=== PATIENT | female | born 1965 | race Caucasian/White ===

== ENCOUNTER 2017-01-16 14:41 | Emergency (ER) | payer SELFPAY ==
[~2017-01-16] VITALS: Ht 167.6 cm; Wt 61.7 kg
[2017-01-16] MEDS ORDERED: NYST1000 PO (15:38)
--- NOTE | 2017-01-16 15:43 | PHYS DOC ---
General Chief Complaint: DENTAL PROBLEM Stated Complaint: MOUTH PAIN Time Seen by MD: 15:36 Source: patient Exam Limitations: no limitations Problems: History of Present Illness Initial Comments Pt is 51/F to ED c/o mouth pain. Pt states she's had severe mouth pain for over a month. No trauma, no dental pain, pt states the inside of her mouth feels swollen. Eating and drinking are painful, pt has been using OTC canker sore preps which sting badly initially but do provide relief. Pt was seen at [facility] yesterday diagnosed salivary gland infection. Pt has grown weary of the discomfort, expresses frustration and despair here for analgesia. I note whitish exudate at tongue, thru questioning she says every now and then she has to scrape off the white covering in her mouth. No blood visualized but she has tasted it after scraping. Further questioning reveals pt took prednisone 6 weeks ago for chest congestion. Denies immunosuppression or recent antibiotics, and when asked states she does think she has vaginal yeast infection. Timing/Duration: gradual, other Severity: severe Location: mouth Prearrival Treatment: over the counter meds Modifying Factors: improves with other Associated Symptoms: poor solids intake, other Allergies: Coded Allergies: morphine (Verified Allergy, Severe, Nausea and Vomiting, 01/16/17) Past Medical History Medical History: no pertinent history Surgical History: noncontributory (cervical fracture) Social History Smoker: quit less than 1 year Alcohol: none Drugs: none Constitutional: denies chills, denies diaphoresis, denies fever, denies malaise Nose: denies clots, denies congestion, denies epistaxis Mouth: see HPI Throat: denies pain, denies swelling, denies neck stiffness Respiratory: denies cough, denies shortness of breath, denies wheezing Cardiovascular: denies chest pain, denies palpitations, denies syncope Gastrointestinal: denies abdominal pain, denies nausea, denies vomiting Musculoskeletal: denies back pain, denies joint swelling, denies neck pain Neurological: denies headache, denies numbness, denies paresthesia Physical Exam General Appearance: WD/WN, no apparent distress Nose: normal inspection Mouth/Throat: other (whitish exudate over erythematous base c/w thrush, airway patent) Neck: supple, trachea midline Cardiovascular/Respiratory: normal peripheral pulses, normal breath sounds, no respiratory distress Neurologic/Psychiatric: 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 OTC analgesic throat sprays, tylenol/ibuprofen as needed. Rx: nystatin Follow up with your doctor in 10-14 days. Return to ED with new or changing symptoms. ANISHA DAN DO Jan 16, 2017 15:43
[2017-01-16] MEDS ORDERED: FLUCONAZOLE 100 MG TABLET. PO ONE (16:00)
[2017-01-16 16:08] VITALS: BP 101/80
== END 2017-01-16 15:45 | disposition home or self-care (01) ==
LOC: ER 14:41
DX: B37.9 Candidiasis, unspecified (principal); Z87.891 Personal history of nicotine dependence; Z88.5 Allergy status to narcotic agent
CPT/HCPCS: 99283

== ENCOUNTER 2017-05-17 19:55 | Emergency (ER) | payer SELFPAY ==
[~2017-05-17] VITALS: Ht 167.6 cm; Wt 58.1 kg
[~2017-05-17 19:55] MED LIST: NYST1000 PO
[2017-05-17 20:07] VITALS: BP 139/98
[2017-05-17] MEDS ORDERED: NEOMYCIN/BACITRAC/POLY TOPICAL OINTMENT 28GM TUBE. TP STA (20:17)
[2017-05-17] MEDS ORDERED: DIPHTH,PERTUSS(ACELL),TET TOX 0.5 ML DISP.SYRIN. VAX IM ONE (20:30)
[2017-05-17] MEDS ORDERED: CEPHALEXIN 250 MG CAPSULE PO ONE (20:30)
[2017-05-17] MEDS ORDERED: IBUPROFEN 600 MG TABLET. PO ONE (20:30)
[2017-05-17] MEDS ORDERED: traMADol 50 MG TABLET PO ONE (20:30)
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
[2017-05-17] MEDS ORDERED: HYDR-971 PO (21:44)
[2017-05-17] MEDS ORDERED: CEPH-264 PO (21:44)
[2017-05-17] MEDS ORDERED: FLUC150T PO (21:44)
[2017-05-17] MEDS ORDERED: NAPR500T3 PO (21:44)
== END 2017-05-17 22:02 | disposition home or self-care (01) ==
LOC: ER 19:55
DX: S50.811A Abrasion of right forearm, initial encounter (principal); S20.311A Abrasion of right front wall of thorax, initial encounter; Z88.1 Allergy status to other antibiotic agents; Z88.5 Allergy status to narcotic agent; W19.XXXA Unspecified fall, initial encounter; Y93.89 Activity, other specified; Y99.8 Other external cause status; Y92.89 Other specified places as the place of occurrence of the external cause
CPT/HCPCS: 90471; 90715; 99284-25

== ENCOUNTER → 2018-02-15 | Outpatient (CLI) | payer OTHER ==
[~2018-02-15] MED LIST changes: +CEPH-264 PO; +FLUC150T PO; +HYDR-971 PO; +NAPR-514 PO
--- NOTE | 2018-02-15 16:32 | RAD ---
EXAM: Chest, single view; bilateral ribs, 4 views. HISTORY: Pain. COMPARISON: None. FINDINGS: A frontal view of the chest and 4 views of the ribs are obtained. There is no infiltrate, effusion or pneumothorax. The heart is normal in size. There is cervical spinal fusion instrumentation at the superior margin of the [id number]. There is deformity of the right ninth and tenth ribs due to healed fractures. There may also be healed fractures of the seventh and eighth ribs. IMPRESSION: 1. No acute pulmonary finding. 2. Suspected healed anterior right rib fractures. No acute displaced rib fracture is seen. Electronically signed by: Vero Lopez MD (02/15/2018 4:28 PM) [facility] [place]
--- NOTE | 2018-02-15 16:32 | RAD ---
EXAM: Chest, single view; bilateral ribs, 4 views. HISTORY: Pain. COMPARISON: None. FINDINGS: A frontal view of the chest and 4 views of the ribs are obtained. There is no infiltrate, effusion or pneumothorax. The heart is normal in size. There is cervical spinal fusion instrumentation at the superior margin of the [id number]. There is deformity of the right ninth and tenth ribs due to healed fractures. There may also be healed fractures of the seventh and eighth ribs. IMPRESSION: 1. No acute pulmonary finding. 2. Suspected healed anterior right rib fractures. No acute displaced rib fracture is seen. Electronically signed by: Vero Lopez MD (02/15/2018 4:28 PM) [facility] [place]
== END | disposition home or self-care (01) ==
LOC: DXRAD 15:26
PROVIDERS: ATTEND Nurse Practitioner Family
DX: R07.9 Chest pain, unspecified (principal)
CPT/HCPCS: 71046; 71110

== ENCOUNTER → 2018-08-25 | Outpatient (CLI) | payer OTHER ==
[~2018-08-25] MED LIST changes: +HYDR-3165 PO; -HYDR-971 PO
--- NOTE | 2018-08-25 15:26 | RAD ---
DATE: 08/25/2018 EXAM: DIGITAL SCREEN BILAT W/CAD HISTORY: Routine screening COMPARISON: 08/13/2016 This study was interpreted with the benefit of Computerized Aided Detection (CAD). Breast Density: HETERO The breast parenchyma is heterogenously dense, which could reduce sensitivity of mammography. Breast parenchyma level C. FINDINGS: No new or enlarging breast densities are seen. Minimal benign type calcification is present. No suspicious microcalcifications have developed. IMPRESSION: Stable mammograms without evidence of malignancy. BI-RADS CATEGORY: 2 BENIGN FINDING(S) RECOMMENDED FOLLOW-UP: 12M 12 MONTH FOLLOW-UP PQRS compliance statement: Patient information was entered into a reminder system with a target due date for the next mammogram. Mammography is a sensitive method for finding small breast cancers, but it does not detect them all and is not a substitute for careful clinical examination. A negative mammogram does not negate a clinically suspicious finding and should not result in delay in biopsying a clinically suspicious abnormality. "Our facility is accredited by the [employer] Mammography Program."
== END | disposition home or self-care (01) ==
LOC: MAMMO 11:08
PROVIDERS: ATTEND Family Medicine
DX: Z12.31 Encounter for screening mammogram for malignant neoplasm of breast (principal)
CPT/HCPCS: 77067

== ENCOUNTER 2018-11-28 10:57 | Emergency (ER) | payer SELFPAY ==
[~2018-11-28] VITALS: Ht 167.6 cm; Wt 61.2 kg
--- NOTE | 2018-11-28 12:10 | RAD ---
Examination: 2 views of the lumbar spine HISTORY: History of fall, back pain COMPARISON: None available FINDINGS: The lumbar vertebral body heights are maintained. No evidence of listhesis is identified. Mild intervertebral disc height loss identified in the lumbar spine likely degeneration. The facets appear to align. Straightening of lumbar lordosis. IMPRESSION: 1. No acute osseous findings. 2. There is straightening of normal lordosis likely secondary to muscle spasm or pain. 3. Mild degenerative changes lumbar spine. Electronically signed by: Dean Nettles MD (11/28/2018 12:07 PM) [facility]
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
[2018-11-28] MEDS ORDERED: CYCLOBENZAPRINE 10 MG TABLET. PO ONE (12:30)
[2018-11-28 12:48] VITALS: BP 136/65
[2018-11-28] MEDS ORDERED: CYCL-331 PO (12:51)
== END 2018-11-28 13:04 | disposition home or self-care (01) ==
LOC: ER 10:57
DX: S39.012A Strain of muscle, fascia and tendon of lower back, initial encounter (principal); R55 Syncope and collapse; Z88.1 Allergy status to other antibiotic agents; Z88.5 Allergy status to narcotic agent; W18.39XA Other fall on same level, initial encounter; Y93.89 Activity, other specified; Y92.89 Other specified places as the place of occurrence of the external cause; Y99.8 Other external cause status
CPT/HCPCS: 72100; 99283

== ENCOUNTER 2018-12-31 17:07 | Emergency (ER) | payer SELFPAY ==
[~2018-12-31] VITALS: Ht 167.6 cm; Wt 63.5 kg
[~2018-12-31 17:07] MED LIST changes: +CYCL-331 PO
[2018-12-31 17:15] VITALS: BP 115/82
[2018-12-31] MEDS ORDERED: IV NORMAL SALINE 1,000ML 1,000 ML IV ONE (17:30)
--- NOTE | 2018-12-31 17:35 | RAD ---
PQRS Compliance statement: One or more of the following individualized dose reduction techniques were utilized for this examination: 1. Automated exposure control. 2. Adjustment of the mA and/or kV according to patient size. 3. Use of iterative reconstruction technique. Indication:HEAD INJURY TODAY, LACERATION TO POSTERIOR SKULL. HEAD AND NECK PAIN TECHNIQUE: CT head without IV contrast COMPARISON:None FINDINGS: No pathologic extra-axial or intra-axial fluid collection. The ventricles and basal cisterns are within normal limits. No acute intracranial bleed. No large scalp hematoma. Orbits within normal limits. No acute calvarial fracture. Visualized paranasal sinuses and mastoid air cells are clear. IMPRESSION: No acute intracranial process or calvarial fracture. Indication:HEAD INJURY TODAY, LACERATION TO POSTERIOR SKULL. HEAD AND NECK PAIN TECHNIQUE: CT of the cervical spine without IV contrast with multiplanar reformats. COMPARISON:None FINDINGS: Cervical spine demonstrates straightening. This could be due to muscle spasm or positioning. Atlantoaxial joint interval is preserved. Status post anterior fusion at C6-C7. Break in the screws seen in C6 vertebral body. Discectomy changes at C5-C6. No compression deformity. Facet joints are in normal anatomic alignment with multilevel facet arthropathy. No acute fractures. Noncontrast appearance of the neck soft tissue is within normal limits. Clear lung apices. IMPRESSION: 1. No acute fractures. Electronically signed by: Jae Silver DO (12/31/2018 5:32 PM) [facility]
[2018-12-31 17:41] LABS: BASO # 0.1 x10^3/uL (0.0-0.2); BASO % 1 % (0-3); EOS # 0.1 x10^3/uL (0.0-0.7); EOS % 3 % (0-3); HEMATOCRIT 42.2 % (36.0-47.0); HEMOGLOBIN 14.3 g/dL (12.0-15.5); LYMPH # 2.2 x10^3/uL (1.0-4.8); LYMPH % 43 % (24-48); MEAN CORPUSCULAR HEMOGLOBIN 33 pg (25-35); MEAN CORPUSCULAR HGB CONC 34 g/dL (31-37); MEAN CORPUSCULAR VOLUME 96 fL (79-100); MONO # 0.4 x10^3/uL (0.0-1.1); MONO % 8 % (0-9); NEUT # 2.4 x10^3uL (1.8-7.7); NEUT % 46 % (31-73); PLATELET COUNT 226 x10^3/uL (140-400); RED BLOOD COUNT 4.39 x10^6/uL (3.50-5.40); RED CELL DISTRIBUTION WIDTH 14.7 % (11.5-14.5); WHITE BLOOD COUNT 5.2 x10^3/uL (4.0-11.0)
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
[2018-12-31 17:52] LABS: ALBUMIN/GLOBULIN RATIO 1.1 (1.0-1.7); CALCIUM 9.1 mg/dL (8.5-10.1); CREATININE 0.7 mg/dL (0.6-1.0); GFR 87.2; POTASSIUM 3.8 mmol/L (3.5-5.1); TOTAL BILIRUBIN 0.2 mg/dL (0.2-1.0); TOTAL PROTEIN 7.8 g/dL (6.4-8.2)
[2018-12-31] MEDS ORDERED: KETOROLAC 30 MG/ML VIAL. IV ONE (18:30)
[2018-12-31] MEDS ORDERED: DIPHTH,PERTUSS(ACELL),TET TOX 0.5 ML DISP.SYRIN. VAX IM ONE (18:45)
[2018-12-31 23:32] LABS: % SEGS 42 % (35-66)
[2018-12-31 23:33] LABS: % BANDS 2 % (0-9); % EOS 4 % (0-5); % MONOS 5 % (0-10)
[2018-12-31 23:34] LABS: % BASOS 2 % (0-3); % LYMPHS 44 % (24-48)
[2018-12-31 23:35] LABS: % ATYL 1 % (0-0)
[2018-12-31 23:37] LABS: PLT ESTIMATE ADEQUATE (ADEQUATE); POLYCHROMASIA SLIGHT; SCHISTOCYTES OCC
== END 2018-12-31 18:54 | disposition home or self-care (01) ==
LOC: ER 17:07
DX: T74.11XA Adult physical abuse, confirmed, initial encounter (principal); S01.01XA Laceration without foreign body of scalp, initial encounter; G44.319 Acute post-traumatic headache, not intractable; R55 Syncope and collapse; Z88.1 Allergy status to other antibiotic agents; Y04.0XXA Assault by unarmed brawl or fight, initial encounter; Y93.89 Activity, other specified; Y92.098 Other place in other non-institutional residence as the place of occurrence of the external cause; Y99.8 Other external cause status
CPT/HCPCS: 12002; 36415; 70450; 72125; 80053; 85007; 85025; 90471; 90715; 96361; 96374; 99284; J1885; J7030

== ENCOUNTER 2019-03-31 08:56 | Emergency (ER) | payer SELFPAY ==
[~2019-03-31] VITALS: Ht 167.6 cm; Wt 63.5 kg
[2019-03-31] MEDS ORDERED: IV NORMAL SALINE 1,000ML 1,000 ML IV ONE (09:15)
[2019-03-31] MEDS ORDERED: IPRATRPIUM/ALBUTEROL 0.5/2.5MG 3 ML NEBU. NEB ONE (09:15)
[2019-03-31] MEDS ORDERED: methylPREDNISolone SOD SUCC PF 125 MG/2 ML VIAL. IV ONE (09:15)
--- NOTE | 2019-03-31 09:22 | PHYS DOC ---
Past History Past Medical History: Other Past Surgical History: Appendectomy, Hysterectomy, Tonsillectomy, Other Alcohol Use: Occasionally Drug Use: None Adult General Chief Complaint Chief Complaint: MULTIPLE COMPLAINTS [facility] HPI 53-year-old female presents with mild shortness of breath. The patient has asthma. She has been using her albuterol 4 times a day. She continues to feel short of breath for the last 2 days. After she got ready this morning, she was felt like she could not catch her breath and said come the hospital. She has had cough and congestion. She denies fever or chills. She had recent contact to a child with viral URI. She is still able to do daily activities. Review of Systems Review of Systems Constitutional: Denies fever or chills [] Eyes: Denies change in visual acuity, redness, or eye pain [] HENT: nasal congestion [] Respiratory: Cough with shortness of breath [] Cardiovascular: No additional information not addressed in HPI [] GI: Denies abdominal pain, nausea, vomiting, bloody stools or diarrhea [] : Denies dysuria or hematuria [] Musculoskeletal: Denies back pain or joint pain [] Integument: Denies rash or skin lesions [] Neurologic: Denies headache, focal weakness or sensory changes [] Endocrine: Denies polyuria or polydipsia [] All other systems were reviewed and found to be within normal limits, except as documented in this note. Allergies Allergies Allergies Coded Allergies Type Severity Reaction Last Updated Verified Tetracyclines Allergy Intermediate 05/17/17 Yes morphine Adverse Reaction Severe Nausea and Vomiting 05/17/17 Yes Physical Exam Physical Exam Constitutional: Well developed, well nourished, no acute distress, non-toxic appearance. [] HENT: Normocephalic, atraumatic, bilateral external ears normal, oropharynx moist, no oral exudates, nose normal. [] Eyes: PERRLA, EOMI, conjunctiva normal, no discharge. [] Neck: Normal range of motion, no tenderness, supple, no stridor. [] Cardiovascular:Heart rate regular rhythm, no murmur [] Lungs & Thorax: Bilateral breath sounds with mild, bilateral end expiratory wheezing[] Abdomen: Bowel sounds normal, soft, no tenderness, no masses, no pulsatile masses. [] Skin: Warm, dry, no erythema, no rash. [] Back: No tenderness, no CVA tenderness. [] Extremities: No tenderness, no cyanosis, no clubbing, ROM intact, no edema. [] Neurologic: Alert and oriented X 3, normal motor function, normal sensory function, no focal deficits noted. [] Psychologic: Affect normal, judgement normal, mood normal. [] EKG EKG [] Radiology/Procedures Radiology/Procedures [] Impressions: Exam performed: 2 views of the chest. Indication: SOB Date of Service: 03/31/2019 9:26 AM . Comparison : 02/15/18 Findings: PA and lateral radiographs of the chest reveal a normal cardiomediastinal contour. The lungs are clear. No pleural fluid is seen. The visualized osseous structures are unremarkable. Impression: No acute cardiopulmonary process seen. Electronically signed by: Maria Elena Del Cid MD (03/31/2019 9:36 AM) [facility] DICTATED AND SIGNED BY: MARIA ELENA DEL CID MD DATE: 03/31/19 0936 CC: YOUNG OROPEZA DO; PCP,UNKNOWN ~ Course & Med Decision Making Course & Med Decision Making Pertinent Labs and Imaging studies reviewed. (See chart for details) The patient was given a DuoNeb treatment in the ED followed by 125 of Solu- Medrol IV. Her chest x-ray is negative for acute findings. I believe this is a COPD exacerbation. I will discharge her with a prescription for an additional 50 mg of prednisone for 3 days. She is stable for discharge at this time. [] Dragon Disclaimer Dragon Disclaimer This electronic medical record was generated, in whole or in part, using a voice recognition dictation system. Departure Departure: Impression: Primary Impression: COPD exacerbation Disposition: 01 HOME, SELF-CARE Condition: STABLE Referrals: PCP,UNKNOWN (PCP) Patient Instructions: Chronic Obstructive Pulmonary Disease Exacerbation, [id number] Scripts Prednisone (PREDNISONE) 10 Mg Tablet 50 MG PO DAILY for COPD exacerbation for 3 Days, #15 TAB Prov: YOUNG OROPEZA DO 03/31/19 YOUNG OROPEZA DO Mar 31, 2019 09:22
--- NOTE | 2019-03-31 09:39 | RAD ---
Exam performed: 2 views of the chest. Indication: SOB Date of Service: 03/31/2019 9:26 AM . Comparison : 02/15/18 Findings: PA and lateral radiographs of the chest reveal a normal cardiomediastinal contour. The lungs are clear. No pleural fluid is seen. The visualized osseous structures are unremarkable. Impression: No acute cardiopulmonary process seen. Electronically signed by: Maria Elena Del Cid MD (03/31/2019 9:36 AM) [facility]
[2019-03-31] MEDS ORDERED: PRED-220 PO (09:59)
[2019-03-31] MEDS ORDERED: NAPROXEN 500 MG TABLET PO ONE (10:00)
[2019-03-31 10:09] LABS: BASO # 0.1 x10^3/uL (0.0-0.2); BASO % 1 % (0-3); EOS # 0.1 x10^3/uL (0.0-0.7); EOS % 1 % (0-3); HEMATOCRIT 42.5 % (36.0-47.0); HEMOGLOBIN 13.8 g/dL (12.0-15.5); LYMPH # 2.3 x10^3/uL (1.0-4.8); LYMPH % 25 % (24-48); MEAN CORPUSCULAR HEMOGLOBIN 32 pg (25-35); MEAN CORPUSCULAR HGB CONC 33 g/dL (31-37); MEAN CORPUSCULAR VOLUME 98 fL (79-100); MONO # 0.7 x10^3/uL (0.0-1.1); MONO % 8 % (0-9); NEUT # 6.2 x10^3uL (1.8-7.7); NEUT % 66 % (31-73); PLATELET COUNT 195 x10^3/uL (140-400); RED BLOOD COUNT 4.35 x10^6/uL (3.50-5.40); RED CELL DISTRIBUTION WIDTH 14.3 % (11.5-14.5); WHITE BLOOD COUNT 9.5 x10^3/uL (4.0-11.0)
[2019-03-31 10:15] VITALS: BP 115/71
== END 2019-03-31 10:47 | disposition home or self-care (01) ==
LOC: ER 08:56
DX: J44.1 Chronic obstructive pulmonary disease with (acute) exacerbation (principal); Z88.1 Allergy status to other antibiotic agents; Z88.5 Allergy status to narcotic agent
CPT/HCPCS: 36415; 71046; 85025; 94640; 96374; 99285; J2930; J7620; J7030

== ENCOUNTER 2019-08-17 04:00 | Emergency (ER) | payer SELFPAY ==
[~2019-08-17] VITALS: Ht 167.6 cm; Wt 63.5 kg
[~2019-08-17 04:00] MED LIST changes: +PRED-220 PO
[2019-08-17 04:11] VITALS: BP 152/96
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
== END 2019-08-17 04:45 | disposition home or self-care (01) ==
LOC: ER 04:00
DX: G89.29 Other chronic pain (principal); M54.2 Cervicalgia; Z88.1 Allergy status to other antibiotic agents; Z88.5 Allergy status to narcotic agent
CPT/HCPCS: 99281

== ENCOUNTER 2020-10-17 04:20 | Emergency (ER) | payer SELFPAY ==
[~2020-10-17] VITALS: Ht 167.6 cm; Wt 5.5 kg
[2020-10-17 04:20] VITALS: BP 135/78
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
[2020-10-17] MEDS ORDERED: ACETAMINOPHEN 500 MG TABLET PO ONE (05:00)
--- NOTE | 2020-10-17 06:26 | RAD ---
EXAM: XR FOOT_RIGHT 3 VIEWS, XR HIP_RT 2-3VIEWS, XR EXAM OF ANKLE_RIGHT 3VIEWS 10/17/2020 4:28 AM CLINICAL INDICATION: Fall, right hip ankle and foot pain. COMPARISON: None FINDINGS: Right ankle: No fracture or malalignment. Ankle mortise is symmetric and talar dome is intact. No deg enerative changes. No soft tissue abnormality. Right foot: No fracture or malalignment. No degenerative changes. Soft tissues normal. Right hip: No acute fracture. Alignment is normal. Hip joint space is maintained. The right sacroilia c joint and pubic symphysis are normal. IMPRESSION: No acute osseous abnormality of the right foot, ankle, or hip. Electronically signed by: Nelida Rodriguez MD (10/17/2020 6:23 AM) [id number]
== END 2020-10-17 05:00 | disposition home or self-care (01) ==
LOC: ER 04:20
DX: S93.401A Sprain of unspecified ligament of right ankle, initial encounter (principal); J45.909 Unspecified asthma, uncomplicated; Z88.1 Allergy status to other antibiotic agents; Z88.5 Allergy status to narcotic agent; X50.9XXA Other and unspecified overexertion or strenuous movements or postures, initial encounter; Y93.01 Activity, walking, marching and hiking; Y92.89 Other specified places as the place of occurrence of the external cause; Y99.8 Other external cause status
CPT/HCPCS: 73502; 73610; 73630; 99284

== ENCOUNTER 2021-06-30 15:18 | Emergency (ER) | payer SELFPAY ==
[~2021-06-30] VITALS: Ht 167.6 cm; Wt 51.9 kg
[2021-06-30] MEDS ORDERED: IBUPROFEN 600 MG TABLET. PO ONE (15:30)
[2021-06-30] MEDS ORDERED: IV NORMAL SALINE 1,000ML 1,000 ML IV ONE (15:30)
[2021-06-30] MEDS ORDERED: ONDANSETRON PF 4 MG/2 ML VIAL. IVP ONE (15:30)
--- NOTE | 2021-06-30 15:33 | PHYS DOC ---
Past History Past Medical History: Asthma (MIESHA BURNETTE APRN) Past Surgical History: Tonsillectomy, Other Additional Past Surgical Histo: NECK X3, TUMOR REMOVAL FROM ABDOMEN (MIESHA BURNETTE APRN) Alcohol Use: Occasionally Drug Use: None (MIESHA BURNETTE APRN) General Adult EDM: Chief Complaint: ALTERED MENTAL STATUS HPI: HPI: Patient is a 56-year-old female who presents to the ER today for headache and nausea. Patient states that she believes that she was exposed to natural gas. Patient states that she was sitting in her home when she thought she had smelled gas and so she went out to her car which was not running and she started having a headache. Mild nausea. EMS states that she was unsteady on her feet and fell over. Patient states that she did hit her head but did not lose consciousness. Patient is reporting of frontal headache and nausea. She denies any vomiting, alcohol use, drug use. EMS states no other people in her home have the symptoms and the fire department did not find any readings on their monitors. (MIESHA BURNETTE APRN) Review of Systems: Review of Systems: Constitutional: Denies fever or chills GI: Denies abdominal pain, vomiting, bloody stools or diarrhea, SEE HPI Neurologic: Denies focal weakness or sensory changes, see HPI Psychiatric: Denies depression or anxiety (MIESHA BURNETTE APRN) Allergies: Allergies: Allergies Coded Allergies Type Severity Reaction Last Updated Verified Tetracyclines Allergy Intermediate 05/17/17 Yes morphine Adverse Reaction Severe Nausea and Vomiting 05/17/17 Yes (MIESHA BURNETTE APRN) Physical Exam: PE: Constitutional: Well developed, well nourished, no acute distress, non-toxic appearance. [] HENT: Normocephalic, atraumatic, bilateral external ears normal, oropharynx moist, no oral exudates, nose normal, no lacerations noted. [] Eyes: PERRL, EOMI, conjunctiva normal, no discharge. [] Neck: Normal range of motion, no stridor Cardiovascular:Heart rate regular rhythm, no murmur [] Lungs & Thorax: Bilateral breath sounds clear to auscultation [] Abdomen: Bowel sounds normal, soft, no tenderness, no masses, no pulsatile masses. [] Skin: Warm, dry, no erythema, no rash. [] Back: Normal range of motion Extremities: No tenderness, no cyanosis, no clubbing, ROM intact, no edema. [] Neurologic: Alert and oriented X 3, normal motor function, normal sensory function, no focal deficits noted. [] Psychologic: Affect normal, judgement normal, mood normal, rambling speech. [] (MIESHA BURNETTE APRN) Current Patient Data: Labs: Laboratory Tests Test 06/30/21 15:40 06/30/21 16:17 White Blood Count 8.1 x10^3/uL Red Blood Count 3.92 x10^6/uL Hemoglobin 12.5 g/dL Hematocrit 38.0 % Mean Corpuscular Volume 97 fL Mean Corpuscular Hemoglobin 32 pg Mean Corpuscular Hemoglobin Concent 33 g/dL Red Cell Distribution Width 14.6 % Platelet Count 235 x10^3/uL Neutrophils (%) (Auto) 57 % Lymphocytes (%) (Auto) 31 % Monocytes (%) (Auto) 9 % Eosinophils (%) (Auto) 4 % Basophils (%) (Auto) 0 % Neutrophils # (Auto) 4.6 x10^3uL Lymphocytes # (Auto) 2.5 x10^3/uL Monocytes # (Auto) 0.7 x10^3/uL Eosinophils # (Auto) 0.3 x10^3/uL Basophils # (Auto) 0.0 x10^3/uL Sodium Level 139 mmol/L Potassium Level 4.6 mmol/L Chloride Level 104 mmol/L Carbon Dioxide Level 25 mmol/L Anion Gap 10 Blood Urea Nitrogen 13 mg/dL Creatinine 0.4 mg/dL Estimated GFR (Cockcroft-Gault) 164.5 BUN/Creatinine Ratio 33 Glucose Level 115 mg/dL Calcium Level 9.0 mg/dL Total Bilirubin 0.3 mg/dL Aspartate Amino Transf (AST/SGOT) 28 U/L Alanine Aminotransferase (ALT/SGPT) 22 U/L Alkaline Phosphatase 79 U/L Troponin I Quantitative < 0.017 ng/mL Total Protein 6.9 g/dL Albumin 3.6 g/dL Albumin/Globulin Ratio 1.1 Urine Collection Type Unknown Urine Color Yellow Urine Clarity Hazy Urine pH 7.0 Urine Specific [place] 1.015 Urine Protein Neg Urine Glucose (UA) Neg mg/dL Urine Ketones (Stick) Neg mg/dL Urine Blood Trace Urine Nitrite Neg Urine Bilirubin Neg Urine Urobilinogen Dipstick 0.2 mg/dL Urine Leukocyte Esterase Large Urine RBC Occ /HPF Urine WBC >40 /HPF Urine Squamous Epithelial Cells Mod /LPF Urine Bacteria Few /HPF Urine Opiates Screen Neg Urine Methadone Screen Neg Urine Barbiturates Neg Urine Phencyclidine Screen Neg Urine Amphetamine/Methamphetamine Pos Urine Benzodiazepines Screen Neg Urine Cocaine Screen Pos Urine Cannabinoids Screen Neg Urine Ethyl Alcohol Neg Current Medications Medications (Trade) Dose Ordered Sig/Merari Route PRN Reason Start Time Stop Time Status Last Admin Dose Admin Sodium Chloride 1,000 ml @ 1,000 mls/hr 1X ONCE IV 06/30/21 15:30 06/30/21 16:29 DC 06/30/21 15:30 Ondansetron HCl (Zofran) 4 mg 1X ONCE IVP 06/30/21 15:30 06/30/21 16:10 DC 06/30/21 15:30 Ibuprofen (Motrin) 600 mg 1X ONCE PO 06/30/21 15:30 06/30/21 16:10 DC 06/30/21 15:30 (MIESHA BURNETTE APRN) EKG: EKG: EKG performed by ER staff at 1539 shows sinus rhythm, no STEMI read by Dr. Oropeza at 1546. [] (MIESHA BURNETTE APRN) Radiology/Procedures: Radiology/Procedures: []PROCEDURE: CT HEAD WO CONTRAST INDICATION: Reason: head injury / Spl. Instructions: / History: COMPARISON: December 2018 TECHNIQUE: Axial CT images obtained through the head without intravenous contrast. One or more of the following individualized dose reduction techniques were utilized for this examination: 1. Automated exposure control; 2. Adjustment of the mA and/or kV according to patient size; 3. Use of iterative reconstruction technique. FINDINGS: No intracranial hemorrhage. No significant midline shift. Ventricles and sulci are unremarkable. No acute osseous abnormality. Mucosal thickening bilateral maxillary sinuses partially seen. IMPRESSION: * No acute intracranial hemorrhage. Electronically signed by: Yong Stock MD (06/30/2021 4:07 PM) [id number] DICTATED AND SIGNED BY: YONG STOCK MD DATE: 06/30/21 1559 CC: BRENT RASHEED; YOUNG OROPEZA DO; MIESHA BURNETTE APRN ~MTH0 0 PROCEDURE: CHEST AP ONLY Study: XR CHEST 1V Indication: Altered mental status. Comparison: 03/31/2019 Findings: Unchanged cardiomediastinal silhouette and piero. No focal airspace infiltrate, pleural effusion or pneumothorax. Increased lung volumes unchanged from the prior. Partially imaged ACDF construct. Impression: No acute radiographic abnormality of the chest. No relevant change from the 03/31/2019 comparison. Electronically signed by: ESTEBAN OSORIO MD (06/30/2021 4:02 PM) [id number] DICTATED AND SIGNED BY: ESTEBAN OSORIO MD DATE: 06/30/21 160 CC: BRENT RASHEED; YOUNG OROPEZA DO ~MTH0 0 (MIESHA BURNETTE APRN) Heart Score: C/O Chest Pain: N/A Risk Factors: Risk Factors: DM, Current or recent (<one month) smoker, HTN, HLP, family history of CAD, obesity. Risk Scores: Score 0 - 3: 2.5% MACE over next 6 weeks - Discharge Home Score 4 - 6: 20.3% MACE over next 6 weeks - Admit for Clinical Observation Score 7 - 10: 72.7% MACE over next 6 weeks - Early Invasive Strategies (MIESHA BURNETTE APRN) Course & Med Decision Making: Course & Med Decision Making Pertinent Labs and Imaging studies reviewed. (See chart for details) [] Patient is a 56-year-old female who presents to the ER with headache and nausea after believing she was exposed to carbon monoxide. No other members of the household have the symptoms and the fire department did not find any carbon monoxide readings in the home. Work-up in the ER consisted of blood work, urinalysis, drug screen, CT scan of head this patient stated that she did fall and hit her head. Patient treated with IV fluids, pain medication and nausea medication. CBC unremarkable. Negative troponin. Head CT negative and chest x-ray negative. CMP unremarkable. UA shows urinary tract infection and this will be treated with an antibiotic. Given first dose in ER. Patient also advis ed to increase fluids and avoid bladder irritants. Urine drug screen was positive for cocaine and methamphetamines. Patient states that the cocaine was submitted in some food at a libertarian that she attended yesterday and the amphetamines are prescribed to her. I discussed with patient all findings and diagnostic testing as well as the need to follow-up with PCP for further evaluation and treatment or return to the ER if any new or worsening symptoms. Strict return precautions were also discussed at length. Patient voiced understanding and agreement with the plan. Patient is hemodynamically stable at the time of disposition. (MIESHA BURNETTE APRN) Dillon Disclaimer: Dillon Disclaimer: This electronic medical record was generated, in whole or in part, using a voice recognition dictation system. (MIESHA BURNETTE APRN) Attending Co-Sign The patient was seen and interviewed as well as examined at the bedside. The chart was reviewed. The case was discussed. Agree with the plan of care. (YOUNG OROPEZA DO) Departure Departure: Impression: Primary Impression: Urinary tract infection Qualified Codes: N30.01 - Acute cystitis with hematuria Disposition: HOME / SELF CARE / HOMELESS Condition: GOOD Referrals: BRENT RASHEED (PCP) Patient Instructions: Urinary Tract Infection Additional Instructions: You were seen in the ER today for suspicion for carbon oxide poisoning. As we discussed, the fire department did not find any carbon monoxide in your home. Your blood work was reassuring however you were noted to have a urinary tract infection which will be treated with an antibiotic. Please start and finish this completely. Please increase your fluids and avoid bladder irritants such as sugary beverages, alcohol and caffeine. If you develop any headaches you can take Tylenol or ibuprofen at home. Please follow-up with your primary care provider tomorrow regarding your ER visit. If you develop any new or worsening concerns please return to the ER. EMERGENCY DEPARTMENT GENERAL DISCHARGE INSTRUCTIONS Thank you for coming to [facility] (ED) today and trusting us with you care. We trust that you had a positivie experience in our Emergency Department. If you wish to speak to the department management, you may call the director at [phone]. YOUR FOLLOW UP INSTRUCTIONS ARE FOLLOWS: 1. Do you have a private Doctor? If you do not have a private doctor, please ask for a resource list of physicians or clinics that may be able to assist you with follo w up care. 2. The Emergency Physician has interpreted your x-rays. The X-Ray specialist will also review them. If there is a change in the findings, you will be notified in 48 hours when at all possible. 3. A lab test or culture has been done, your results will be reviewed and you will be notified if you need a change in treatment. ADDITIONAL INSTRUCTIONS AND INFORMATION: 1. Your care today has been supervised by a physician who is specially trained in emergency care. Many problems require more than one evaluation for a complete diagnosis and treatment. We recommend that you schedule your follow up appointment as rec ommended to ensure complete treatment of you illness or injury. If you are unable to obtain follow up care and continue to have a problem, or if your condition worsens, we recommend that you return to the ED. 2. We are not able to safely determine your condition over the phone nor are we able to give sound medical advice over the phone. For these safety reasons, if you call for medical advice we will ask you to come to the ED for further evaluation. 3. If you have any questions regarding these discharge instructions please call the ED at [phone]. SAFETY INFORMATION: In the interest of safety, wellness, and injury prevention; we encourage you to wear your sealbelt, if you smoke; quite smoking, and we encourage family to use a protective helmet for bicycling and other sporting events that present an increased risk for head injury. IF YOUR SYMPTOMS WORSEN OR NEW SYMPTOMS DEVELOP, OR YOU HAVE CONCERNS ABOUT YOUR CONDITION; OR IF YOUR CONDITION WORSENS WHILE YOU ARE WAITING FOR YOUR FOLLOW UP APPOINTMENT; EITHER CONTACT YOUR PRIMARY CARE DOCTOR, THE PHYSICIAN WHOSE NAME AND NUMBER YOU WERE GIVEN, OR RETURN TO THE ED IMMEDIATELY. Scripts Cephalexin (CEPHALEXIN) 500 Mg Tablet 1 TAB PO BID for UTI for 7 Days, #14 TAB 0 Refills Prov: MIESHA BURNETTE APRN 06/30/21 MIESHA BURNETTE APRN Jun 30, 2021 15:33 YOUNG OROPEZA DO Jul 01, 2021 09:22
--- NOTE | 2021-06-30 16:04 | RAD ---
Study: XR CHEST 1V Indication: Altered mental status. Comparison: 03/31/2019 Findings: Unchanged cardiomediastinal silhouette and piero. No focal airspace infiltrate, pleural effusion or pneumothorax. Increased lung volumes unchanged from the prior. Partially imaged ACDF construct. Impression: No acute radiographic abnormality of the chest. No relevant change from the 03/31/2019 comparison. Electronically signed by: ESTEBAN OSORIO MD (06/30/2021 4:02 PM) [id number]
[2021-06-30 16:05] LABS: BASO % 0 % (0-3); EOS # 0.3 x10^3/uL (0.0-0.7); EOS % 4 % (0-3); HEMOGLOBIN 12.5 g/dL (12.0-15.5); LYMPH # 2.5 x10^3/uL (1.0-4.8); LYMPH % 31 % (24-48); MEAN CORPUSCULAR HEMOGLOBIN 32 pg (25-35); MEAN CORPUSCULAR HGB CONC 33 g/dL (31-37); MEAN CORPUSCULAR VOLUME 97 fL (79-100); MONO # 0.7 x10^3/uL (0.0-1.1); MONO % 9 % (0-9); NEUT # 4.6 x10^3uL (1.8-7.7); NEUT % 57 % (31-73); PLATELET COUNT 235 x10^3/uL (140-400); RED BLOOD COUNT 3.92 x10^6/uL (3.50-5.40); RED CELL DISTRIBUTION WIDTH 14.6 % (11.5-14.5); WHITE BLOOD COUNT 8.1 x10^3/uL (4.0-11.0)
--- NOTE | 2021-06-30 16:09 | RAD ---
INDICATION: Reason: head injury / Spl. Instructions: / History: COMPARISON: December 2018 TECHNIQUE: Axial CT images obtained through the head without intravenous contrast. One or more of the following individualized dose reduction techniques were utilized for this examinat ion: 1. Automated exposure control; 2. Adjustment of the mA and/or kV according to patient size; 3 . Use of iterative reconstruction technique. FINDINGS: No intracranial hemorrhage. No significant midline shift. Ventricles and sulci are unremarkable. No acute osseous abnormality. Mucosal thickening bilateral maxillary sinuses partially seen. IMPRESSION: * No acute intracranial hemorrhage. Electronically signed by: He Willett MD (06/30/2021 4:07 PM) [id number]
[2021-06-30 16:14] LABS: CREATININE 0.4 mg/dL (0.6-1.0); GFR 164.5; POTASSIUM 4.6 mmol/L (3.5-5.1)
[2021-06-30 16:20] LABS: ALBUMIN 3.6 g/dL (3.4-5.0); ALBUMIN/GLOBULIN RATIO 1.1 (1.0-1.7); TOTAL BILIRUBIN 0.3 mg/dL (0.2-1.0); TOTAL PROTEIN 6.9 g/dL (6.4-8.2)
[2021-06-30 17:07] LABS: BARBITURATES NEG (NEG); BENZODIAZEPINES NEG (NEG); CANNABINOIDS NEG (NEG); COCAINE POS (NEG); METHADONE NEG (NEG); OPIATES NEG (NEG); PHENCYCLIDINE NEG (NEG)
[2021-06-30 17:08] LABS: AMPHETAMINE/METHAMPHETAMINE POS (NEG)
[2021-06-30 17:17] LABS: BILIRUBIN,URINE NEG (NEG); CLARITY,URINE HAZY; COLOR,URINE YELLOW; GLUCOSE,URINE NEG (NEG)
[2021-06-30 17:18] LABS: BACTERIA,URINE FEW /HPF (0-FEW); NITRITE,URINE NEG (NEG); RBC,URINE OCC /HPF (0-2); SQUAMOUS EPITHELIAL CELL,UR MOD /LPF; UROBILINOGEN,URINE 0.2 mg/dL (0.2 mg/dL); WBC,URINE >40 /HPF (0-4)
[2021-06-30 17:24] VITALS: BP 136/80
[2021-06-30] MEDS ORDERED: CEPH500T PO (17:35)
[2021-06-30] MEDS ORDERED: CEPHALEXIN 250 MG CAPSULE PO ONE (17:45)
--- NOTE | 2021-06-30 20:32 | EKG ---
[address] [address] Test Date: 2021-06-30 Test Time: 15:39:59 Pat Name: JOHANA ZPEEDA Department: Room: Gender: F Waste Handling Technician: DESTINY : 1965 Requested By: YOUNG OROPEZA Order Number: [id number] Reading MD: Arya Gastelum Measurements Intervals [place] Rate: 85 P: 77 FL: 164 QRS: 42 QRSD: 70 T: 71 QT: 368 QTc: 438 Interpretive Statements SINUS RHYTHM LEFT ATRIAL ABNORMALITY LOW LIMB LEAD VOLTAGE T ABNORMALITY IN HIGH LATERAL LEADS ABNORMAL ECG RI6.02 No previous ECG available for comparison Electronically Signed On 07-02-2021 13:44:25 CDT by Arya Gastelum
== END 2021-06-30 17:44 | disposition home or self-care (01) ==
LOC: ER 15:18
DX: N30.01 Acute cystitis with hematuria (principal); J45.909 Unspecified asthma, uncomplicated; Z88.1 Allergy status to other antibiotic agents; Z88.5 Allergy status to narcotic agent
CPT/HCPCS: 36415; 70450; 71045; 80053; 80307; 81001; 84484; 85025; 87086; 93005; 96361; 96374; 99285; J2405; J7030

== ENCOUNTER 2021-08-10 00:10 | Emergency (ER) | payer SELFPAY ==
[~2021-08-10] VITALS: Ht 165.1 cm; Wt 51.9 kg
[~2021-08-10 00:10] MED LIST changes: +CEPH500T PO; -CYCL-331 PO; +CYCL10TA19 PO
--- NOTE | 2021-08-10 00:22 | PHYS DOC ---
Past History Past Medical History: Asthma Past Surgical History: Tonsillectomy, Other Additional Past Surgical Histo: NECK X3, TUMOR REMOVAL FROM ABDOMEN Alcohol Use: Occasionally Drug Use: None Adult General HPI HPI Patient is a 56-year-old female with a past medical history significant for crack cocaine use who smoke some crack just before coming into the emergency department and tripped and fell outside. Denies loss of consciousness, changes in vision, chest pain, shortness of breath, abdominal pain, nausea, vomiting. Denies any numbness/weakness/tingling, trouble sitting, standing or walking. States she is having some pain around her right shoulder which radiates up to the right side of her neck, 6 out of 10, dull and achy in nature. Denies any other injuries. Denies use of anticoagulation. Review of Systems Review of Systems Review of systems otherwise unremarkable except noted in HPI Allergies Allergies Allergies Coded Allergies Type Severity Reaction Last Updated Verified Tetracyclines Allergy Intermediate 05/17/17 Yes morphine Adverse Reaction Severe Nausea and Vomiting 05/17/17 Yes Physical Exam Physical Exam Constitutional: Well developed, well nourished, no acute distress, non-toxic appearance. [] HENT: Normocephalic, atraumatic, bilateral external ears normal, oropharynx moist, no oral exudates, nose normal. [] Eyes: PERRLA, EOMI, conjunctiva normal, no discharge. [] Neck: Normal range of motion, no tenderness, supple, no stridor. [] Cardiovascular:Heart rate regular rhythm, no murmur [] Lungs & Thorax: Bilateral breath sounds clear to auscultation [] Abdomen: soft, no tenderness, no masses, no pulsatile masses. [] Skin: Warm, dry, no erythema, no rash. [] Back: No midline tenderness throughout with no obvious deformities, bruising or step-offs Extremities: Pain around the right shoulder on passive and active range of motion with no obvious bruising, deformities, neurovascular exam intact Neurologic: Alert and oriented X 3, normal motor function, normal sensory function, no focal deficits noted. [] Psychologic: Affect normal, judgement normal, mood normal. [] EKG EKG [] Radiology/Procedures Radiology/Procedures [] Heart Score C/O Chest Pain: No Risk Factors: Risk Factors: DM, Current or recent (<one month) smoker, HTN, HLP, family history of CAD, obesity. Risk Scores: Risk Factors: DM, Current or recent (<one month) smoker, HTN, HLP, family history of CAD, obesity. Course & Med Decision Making Course & Med Decision Making Patient is a 56-year-old female, who smoked some crack cocaine, tripped and fell and is coming in with musculoskeletal complaints Vital signs notable for sinus tachycardia. Physical exam noted above. Patient given Tylenol and ice pack. Imaging with no new acute osseous abnormalities. On reassessment patient was awake, alert wanting something to eat and was given some crackers and a soda which she ate without issue. Blood sugar normal. Patient stated she was ready to go on home. Discussed management of symptoms at home if any. Advised to cease using any substances not prescribed by her physician. Advised to follow-up with primary care physician as soon as she can to update on ED visit. Gave return precautions to the ED. Patient grateful, verbalized understanding and agreed with plan of discharge. [] Dragon Disclaimer Dragon Disclaimer This electronic medical record was generated, in whole or in part, using a voice recognition dictation system. Departure Departure: Impression: Primary Impression: Fall Additional Impression: Shoulder pain Disposition: HOME / SELF CARE / HOMELESS Condition: GOOD Referrals: BRENT RASHEED (PCP) Patient Instructions: RICE - Routine Care for Injuries Additional Instructions: Thank you for coming into the emergency department tonight and allowing us to take care of you. Please read the attached information carefully to go back over some of the things we discussed. You can use Tylenol, ibuprofen and ice at home as needed for symptom control. Please follow-up on Thursday with your primary care physician and set up a post ER follow-up visit. Please come back to the ED with new or concerning symptoms as we discussed. Problem Qualifiers STEFANY GARCIA MD Aug 10, 2021 00:22
[2021-08-10] MEDS ORDERED: ACETAMINOPHEN 500 MG TABLET PO ONE (00:30)
[2021-08-10 02:00] VITALS: BP 122/78
--- NOTE | 2021-08-10 02:38 | RAD ---
RIGHT SHOULDER , 3 VIEWS Clinical Indication: Reason: fall / Spl. Instructions: / History: Comparison: None. Findings: There is no acute fracture or dislocation. The acromioclavicular and glenohumeral joints are intact. The visualized lung is clear. There is no evidence of a displaced rib fracture. There is no soft tiss ue abnormality. ACDF hardware. IMPRESSION: No acute fracture or dislocation. Electronically signed by: Yusef Crook MD (08/10/2021 2:36 AM) [facility]
--- NOTE | 2021-08-10 02:47 | RAD ---
PQRS Compliance Statement: One or more of the following individualized dose reduction techniques were utilized for this examinat ion: 1. Automated exposure control 2. Adjustment of the mA and/or kV according to patient size 3. Use of iterative reconstruction technique CT HEAD AND CERVICAL SPINE WITHOUT CONTRAST History: Reason: fall / Spl. Instructions: / History: Comparison: CT head without contrast June 30, 2021. Procedure: Axial images are obtained of the head from the skull base through the vertex without IV co ntrast. Noncontrast helical CT of the cervical spine was performed. Axial, sagittal, and coronal rec onstructions were obtained. Findings: The ventricles and sulci are normal for the patient's age. No mass-effect, midline shift, hemorrhage or obvious acute infarction is identified. Basilar cistern s are patent. Bone windows demonstrate no significant calvarial abnormality. The visualized paranasal sinuses are clear. Mastoid air cells are well aerated. There is no evidence of acute fracture or acute malalignment of the cervical spine. There are no perched or jumped facet joints. The facet joints are mildly hypertrophic. There is ACDF hardware of C6-C7. There is interbody spacer of C5/C6 with partial interbody fusion. There is disc sp noemy narrowing and endplate reactive changes of C6/C7 and C4/C5 and C3/C4. There is mild grade 1 anter olisthesis of C2 on C3 and C7 on T1. There is mild grade 1 retrolisthesis of C3 on C4. Multilevel unc inate process hypertrophy is seen. There is a left mandible posterior molar dental cavity. Visualized soft tissues of the neck demonstra te no significant abnormalities. The visualized lung apices are clear. IMPRESSION: 1. No acute intracranial abnormality. 2. No acute fracture of the cervical spine. Electronically signed by: Yusef Crook MD (08/10/2021 2:45 AM) [facility]
--- NOTE | 2021-08-10 02:48 | RAD ---
XR CHEST 1V Clinical Indication: Reason: fall / Spl. Instructions: / History: Comparison: AP chest June 30, 2021. Findings: The cardiomediastinal silhouette is normal. Lungs are clear. There is no pneumothorax. No pleural eff usion is appreciated. No acute bone abnormality. ACDF hardware and disc spacer. IMPRESSION: No acute cardiopulmonary process. Electronically signed by: Yusef Crook MD (08/10/2021 2:46 AM) [facility]
== END 2021-08-10 04:20 | disposition home or self-care (01) ==
LOC: ER 00:10
DX: M25.511 Pain in right shoulder (principal); M54.2 Cervicalgia; J45.909 Unspecified asthma, uncomplicated; Z88.1 Allergy status to other antibiotic agents; Z88.5 Allergy status to narcotic agent; W01.0XXA Fall on same level from slipping, tripping and stumbling without subsequent striking against object, initial encounter; Y93.89 Activity, other specified; Y92.89 Other specified places as the place of occurrence of the external cause; Y99.8 Other external cause status
CPT/HCPCS: 70450; 71045; 72125; 73030; 82947; 99284

== ENCOUNTER 2021-11-14 14:49 | Emergency (ER) | payer OTHER ==
--- NOTE | 2021-11-14 15:09 | PHYS DOC ---
Past History Past Medical History: Asthma Additional Past Medical Histor: Broken neck C4, C5, Drug Abuse (MIESHA BURNETTE APRN) Past Surgical History: Tonsillectomy Additional Past Surgical Histo: NECK X3, TUMOR REMOVAL FROM ABDOMEN (MIESHA BURNETTE APRN) Alcohol Use: Occasionally Drug Use: None (MIESHA BURNETTE APRN) General Adult HPI: HPI: Patient is a 56-year-old female who presents via EMS for Covid testing and a possible UTI per patient. Patient reports that her is positive for COVID-19 and she wants to be tested. Patient states that she does not have any symptoms. She denies fever, cough, shortness of breath, nausea, vomiting, loss of taste or smell. Patient reports urinary frequency/urgency and dysuria. She reports that she has been drinking cranberry juice and reports that she believes that she is "getting over it". (MIESHA BURNETTE APRN) Review of Systems: Review of Systems: Constitutional: negative unless reported in HPI Eyes: negative unless reported in HPI HENT: negative unless reported in HPI Respiratory: negative unless reported in HPI Cardiovascular: negative unless reported in HPI GI: negative unless reported in HPI : negative unless reported in HPI Musculoskeletal: negative unless reported in HPI Integument: negative unless reported in HPI Neurologic: negative unless reported in HPI Endocrine: negative unless reported in HPI Lymphatic: negative unless reported in HPI Psychiatric: negative unless reported in HPI (MIESHA BURNETTE APRN) Allergies: Allergies: Allergies Coded Allergies Type Severity Reaction Last Updated Verified Tetracyclines Allergy Intermediate 05/17/17 Yes morphine Adverse Reaction Severe Nausea and Vomiting 05/17/17 Yes (MIESHA BURNETTE APRN) Physical Exam: PE: Constitutional: Well developed, well nourished, no acute distress, non-toxic appearance. [] HENT: Normocephalic, atraumatic, bilateral external ears normal, oropharynx moist, no oral exudates, nose normal. [] Eyes: PERRL, EOMI, conjunctiva normal, no discharge. [] Neck: Normal range of motion, no stridor Cardiovascular:Heart rate regular rhythm, no murmur [] Lungs & Thorax: Bilateral breath sounds clear to auscultation [] Abdomen: Bowel sounds normal, soft, no tenderness, no masses, no pulsatile masses. [] Skin: Warm, dry, no erythema, no rash. [] Back: No tenderness, no CVA tenderness. [] Extremities: No tenderness, no cyanosis, no clubbing, ROM intact, no edema. [] Neurologic: Alert and oriented X 3, normal motor function, normal sensory function, no focal deficits noted. [] Psychologic: Affect normal, judgement normal, mood normal. [] (MIESHA BURNETTE APRN) EKG: EKG: [] (MIESHA BURNETTE APRN) Radiology/Procedures: Radiology/Procedures: [] (MIESHA BURNETTE APRN) Heart Score: C/O Chest Pain: N/A Risk Factors: Risk Factors: DM, Current or recent (<one month) smoker, HTN, HLP, family history of CAD, obesity. Risk Scores: Score 0 - 3: 2.5% MACE over next 6 weeks - Discharge Home Score 4 - 6: 20.3% MACE over next 6 weeks - Admit for Clinical Observation Score 7 - 10: 72.7% MACE over next 6 weeks - Early Invasive Strategies (MIESHA BURNETTE APRN) Course & Med Decision Making: Course & Med Decision Making Pertinent Labs and Imaging studies reviewed. (See chart for details) [] Patient presents to the emergency department requesting a Covid test because her is positive. Patient is asymptomatic. Patient will be COVID tested notified of those results in 1 to 2 days. She is advised to self isolate until she receives these results. Patient is also reporting urinary frequency/urgency and dysuria. Urinalysis ordered. Patient eloped from the emergency department prior to providing urine sample. (MIESHA BURNETTE APRN) Course & Med Decision Making I was the Attending physician on the above date of service of this patient. This patient was evaluated, examined, treated, and dispositioned from the emergency department by the mid-level practitioner. Patient presented requesting COVID-19 testing and urinalysis for potential urinary symptoms. I was notified that patient eloped prior to result of urinalysis with PCR COVID pending Electronically signed, Suleman Abel DO (SULEMAN ABEL DO) [place] Disclaimer: [place] Disclaimer: This electronic medical record was generated, in whole or in part, using a voice recognition dictation system. (MIESHA BURNETTE APRN) Departure Departure: Impression: Primary Impression: Eloped from emergency department Disposition: 07 LEFT AWOL/ELOPED Condition: STABLE Referrals: BRENT RASHEED (PCP) MIESHA BURNETTE APRN Nov 14, 2021 15:09 SULEMAN ABEL DO Nov 15, 2021 06:09
== END 2021-11-14 15:40 | disposition left against medical advice (07) ==
LOC: ER 14:57
DX: R35.0 Frequency of micturition (principal); R39.15 Urgency of urination; R30.0 Dysuria; J45.909 Unspecified asthma, uncomplicated; Z88.1 Allergy status to other antibiotic agents; Z88.5 Allergy status to narcotic agent
CPT/HCPCS: 99281; 99283

== ENCOUNTER 2022-02-23 20:43 | Emergency (ER) | payer OTHER ==
[2022-02-23] MEDS ORDERED: IV NORMAL SALINE 1,000ML 1,000 ML IV ONE (21:00)
== END 2022-02-23 21:00 | disposition left against medical advice (07) ==
LOC: ER 20:43
DX: M54.2 Cervicalgia (principal); R51.9 Headache, unspecified; M54.9 Dorsalgia, unspecified; Z53.21 Procedure and treatment not carried out due to patient leaving prior to being seen by health care provider
CPT/HCPCS: 93005